=== PATIENT | female | born 1975 | race Caucasian/White ===

== ENCOUNTER → 2020-04-19 | Outpatient (CLI) | payer OTHER | LOC: MAMO 12-02 08:10 | DX: Z12.31 Encounter for screening mammogram for malignant neoplasm of breast (principal) | CPT/HCPCS: 77063; 77067 ==

== ENCOUNTER → 2020-05-12 | Outpatient (CLI) | payer OTHER | LOC: US 13:56 | DX: N64.59 Other signs and symptoms in breast (principal) | CPT/HCPCS: 76641-LT ==

== ENCOUNTER → 2020-12-20 | Outpatient (CLI) | payer OTHER | LOC: EMI 12-11 09:52 | DX: R42 Dizziness and giddiness (principal) | CPT/HCPCS: 70553; A9577 ==

== ENCOUNTER → 2021-07-13 | Outpatient (CLI) | payer OTHER | LOC: MAMO 08:30 → US 09:30 | DX: Z12.31 Encounter for screening mammogram for malignant neoplasm of breast (principal); R10.11 Right upper quadrant pain; K76.0 Fatty (change of) liver, not elsewhere classified | CPT/HCPCS: 76700; 77063; 77067 ==

== ENCOUNTER → 2021-09-21 | Outpatient (CLI) | payer OTHER ==
[2021-09-21 08:16] LABS: BUN/CREATININE RATIO 15 (0-10)
== END ==
LOC: LAB 07:05
PROVIDERS: Emergency Medicine
DX: E83.52 Hypercalcemia (principal)
CPT/HCPCS: 36415; 80053; 84439; 84443

== ENCOUNTER → 2021-09-28 | Outpatient (CLI) | payer OTHER | LOC: LAB 07:21 | DX: E66.01 Morbid (severe) obesity due to excess calories (principal); R73.09 Other abnormal glucose | CPT/HCPCS: 36415; 82533 ==